=== PATIENT | male | born 1990 | race African-American/Black ===

== ENCOUNTER 2023-05-02 12:29 | Emergency (ER) | payer BC, SELFPAY ==
[2023-05-02 12:42] VITALS: BP 127/81; PULSE 67; RESP 18; TEMP 36.5; O2SAT 100
--- NOTE | 2023-05-02 12:54 | ED.URI ---
HPI - URI/Sore Throat General Chief Complaint: Upper Respiratory Infection Stated Complaint: Congestion,Bilateral Ear Irritation, Headache Time Seen by Provider: 05/02/23 12:34 Source: patient Mode of arrival: ambulatory Limitations: no limitations History of Present Illness HPI Narrative: Aneesh is a 32-year-old male patient presenting to the clinic today with complaints of chest congestion, nasal congestion, bilateral ear pain, and headache x3 days. He reports he has taken 2 at home COVID test and they were both negative. Reports his fever was high as 101.8. Does have some mild shortness of breath. History of asthma. Does not currently have an inhaler. MD elicited complaint: fever, cough, rhinorrhea and nasal congestion Related Data Allergies Allergy/AdvReac Type Severity Reaction Status Date / Time No Known Allergies Allergy Unverified 01/17/14 09:11 Review of Systems Review of Systems: Pertinent positives per HPI. Patient denies any fever, chills, rash, headache, visual changes, dizziness, cough, shortness of breath, chest pain, palpitations, nausea, vomiting, diarrhea, constipation, abdominal pain, or any urinary issues. [facility] Family History Family History Mother Hypertension Family history of anemia Sibling Asthma Social History Social History Smoking status: Never smoker Alcohol intake: current Comments At the time of my signature, I reviewed and agree with the nursing past medical, surgical, social, and family history. There is no relevant family history pertinent to the patient complaint. Exam Narrative: General: Well-developed, obese, in no apparent distress Head: Normocephalic, atraumatic Eyes: Pupils equally round and reactive to light bilaterally, EOM intact, sclera and conjunctive clear, no discharge, lids normal Ears: TMs intact, congested, bulging, ear canals clear, no drainage, grossly hearing normal. Nose: Nares patent, clear nasal discharge, no inflammation, no sinus tenderness. Mouth: Oral pharynx without lesions or masses, good dentition, MMM. Postnasal drip Neck: Supple, trachea midline, no enlargement of anterior or posterior cervical nodes, no thyroid masses or goiter palpable. Cardio: Regular rate and rhythm, s1 and s2 normal, no murmur appreciated. Resp: Clear to auscultation bilaterally, no rhonchi, rales, wheezing or rubs Course Course Emergency Course: Portions of this record may have been created with voice recognition software. Level of Care: Express Care Visit Vital Signs Vital signs: Vital Signs Temperature 36.5 C 05/02/23 12:42 Pulse Rate 67 05/02/23 12:42 Respiratory Rate 18 05/02/23 12:42 Blood Pressure 127/81 05/02/23 12:42 Pulse Oximetry 100 05/02/23 12:42 Oxygen Delivery Room Air 05/02/23 12:42 Temperature 36.5 C 05/02/23 12:42 Pulse Rate 67 05/02/23 12:42 Respiratory Rate 18 05/02/23 12:42 Blood Pressure 127/81 05/02/23 12:42 Pulse Oximetry 100 05/02/23 12:42 Oxygen Delivery Room Air 05/02/23 12:42 Vital signs reviewed MDM - URI/Sore Throat MDM Narrative Medical decision making narrative: At the time of visit patient is resting comfortably on the exam table. I suspect patient has eustachian tube dysfunction with the URI. Prescription for prednisone and albuterol inhaler was sent to the pharmacy. Supportive measures were discussed with the patient he voiced understanding discharge instructions and agrees to treatment plan. Differential Diagnosis Differential diagnosis: Likely upper respiratory infection, otitis media, sinusitis, viral infection, bronchitis, influenza, pharyngitis and other (COVID, pneumonia) Discharge Plan Discharge Clinical Impression: URI (upper respiratory infection) Qualifiers: URI type: unspecified URI Qualified Code(s): J06.9 - Acute upper respirator
== END 2023-05-02 13:06 | disposition home or self-care (01) ==
PROVIDERS: Emergency Provider Nurse Practitioner Family
DX: J06.9 Acute upper respiratory infection, unspecified (principal); H69.93 Unspecified Eustachian tube disorder, bilateral; J45.909 Unspecified asthma, uncomplicated
CPT/HCPCS: 99213; G0463

== ENCOUNTER 2023-10-23 18:08 | Emergency (ER) | payer OTHER, SELFPAY ==
--- NOTE | ~2023-10-23 | XR_ITS ---
EXAM: XR hand RT min 3V DATE: 10/23/2023 18:48 HISTORY: crush injury . COMPARISON: None available. FINDINGS: Normal mineralization. No fracture or dislocation. No lytic or blastic lesion. Joint space s are maintained. No erosion or periosteal change. Soft tissues within normal limits. IMPRESSION: No acute osseous finding in the right hand. Reviewed, dictated and finalized at location K.
[2023-10-23 18:26] VITALS: BP 127/76; PULSE 74; RESP 18; TEMP 36.4; O2SAT 100
--- NOTE | 2023-10-23 18:37 | ED.EXTPRO ---
HPI - Extremity Problem General Chief complaint: Extremity Problem,Nontraumatic Stated complaint: R hand injury Time Seen by Provider: 10/23/23 19:02 Source: patient and RN notes reviewed Mode of arrival: ambulatory Limitations: no limitations History of Present Illness HPI Narrative: 33-year-old male presents concern for right hand injury. Reports today at work he got his hand caught between scaffolding and the racks. He reports he has been having pain in the 3rd digit and below the 3rd digit on the hand. Reports difficulty moving due to pain. He reports at 1st his hand felt numb. He denies intervention since he was at work. MD Complaint: extremity pain Related Data Allergies Allergy/AdvReac Type Severity Reaction Status Date / Time No Known Allergies Allergy Verified 10/23/23 18:29 Review of Systems Review of Systems: CONSTITUTIONAL: Denies malaise, chills, sweats, or fever. SKIN: Denies rash or itching, open skin, laceration, abrasion, redness, warmth MUSCULOSKELETAL: Reports right hand pain NEUROLOGIC: Denies numbness, weakness All systems reviewed & are unremarkable except as noted in HPI and below PMFSH Family History Family History Mother Hypertension Family history of anemia Sibling Asthma Social History Social History Smoking status: Never smoker Alcohol intake: current Comments At time of signature, agree with nursing past medical, surgical, social and family history. There is no relevant family history pertinent to the presenting complaint Exam Narrative: GENERAL: Well-appearing, well-nourished, and in no acute distress. HEAD: Normocephalic EYES: PERRLA, conjunctivae clear NECK: Supple. CHEST: Speaks in full sentences. No respiratory distress. HEART: Regular rate and rhythm. Normal and equal peripheral pulses. EXTREMITIES: Right hand and digits of hand have normal sensation. 3/5 strength with 3rd digit flexion, extension. Range of motion limited, likely due to pain. No clubbing, cyanosis, or edema noted. Third digit tenderness. Skin intact. Normal digital cascade with flexion of fingers, median, ulnar and radial nerve intact. Normal sensation of each side of finger. Can perform 'okay' sign, 'cross over finger test of index and middle fingers' and 'thumbs up' sign. No scissoring. Normal thumb opposition. Good capillary refill and radial pulse. Distal capillary refill less than 3 seconds. Patient is right hand dominant SKIN: Warn, dry, intact, pink. No rash NEURO: Alert and oriented x3. PSYCH: Normal mood and affect Course Course Emergency Course: Patient is aware of diagnosis, understands and agrees to treatment plan. Anticipatory guidance given. Patient agrees to follow-up as directed and is aware of reasons to seek care at the emergency department. Portions of this record may have been created with voice recognition software Level of Care: Express Care Visit Vital Signs Vital signs: Vital Signs Temperature 97.6 F 10/23/23 18:26 Pulse Rate 74 10/23/23 18:26 Respiratory Rate 18 10/23/23 18:26 Blood Pressure 127/76 10/23/23 18:26 Pulse Oximetry 100 10/23/23 18:26 Oxygen Delivery Room Air 10/23/23 18:26 Temperature 97.6 F 10/23/23 18:26 Pulse Rate 74 10/23/23 18:26 Respiratory Rate 18 10/23/23 18:26 Blood Pressure 127/76 10/23/23 18:26 Pulse Oximetry 100 10/23/23 18:26 Oxygen Delivery Room Air 10/23/23 18:26 Reviewed. MDM - Extremity (Nontraumatic) MDM Narrative Medical decision making narrative: Patients injury and pain is consistent with musculoskeletal etiology. No signs of neurological or vascular compromise on exam. Compartments and tissues are soft without signs of compartment syndrome. Pain is felt appropriate for further evaluation on an outpatient basis. Imaging Data My impression: Images reviewed,
[2023-10-23] MEDS: IBUPROFEN 400 MG TABLET 800 MG PO (18:41)
== END 2023-10-23 19:20 | disposition home or self-care (01) ==
PROVIDERS: Emergency Provider Nurse Practitioner
DX: S69.91XA Unspecified injury of right wrist, hand and finger(s), initial encounter (principal); X58.XXXA Exposure to other specified factors, initial encounter; Y99.0 Civilian activity done for income or pay; J45.909 Unspecified asthma, uncomplicated
CPT/HCPCS: 29130; 73130; 99213; A9270; G0463